=== PATIENT | female | born 1980 | race Caucasian/White ===

== ENCOUNTER 2022-01-29 18:12 | Emergency (ER) | payer MEDICAID ==
[2022-01-30] MEDS ORDERED: Ibuprofen 400 MG Tab PO ONE (07:10)
== END 2022-01-30 07:46 | disposition home or self-care (01) ==
LOC: JP.ED 18:12
DX: F41.0 Panic disorder [episodic paroxysmal anxiety] (principal); F39 Unspecified mood [affective] disorder; G47.9 Sleep disorder, unspecified; F43.12 Post-traumatic stress disorder, chronic; E03.9 Hypothyroidism, unspecified; Z88.5 Allergy status to narcotic agent; Z79.899 Other long term (current) drug therapy
CPT/HCPCS: 36415; 80048; 80143; 80179; 80305; 80307; 85025; 99283; 99285; A9270

== ENCOUNTER 2022-02-11 11:37 | Emergency (ER) | payer MEDICAID ==
[2022-02-11] MEDS ORDERED: Ibuprofen 400 MG Tab PO PRN (20:59)
== END 2022-02-12 07:03 | disposition home or self-care (01) ==
LOC: JP.ED 11:37
DX: F41.9 Anxiety disorder, unspecified (principal); R45.851 Suicidal ideations; F43.10 Post-traumatic stress disorder, unspecified; Z79.899 Other long term (current) drug therapy
CPT/HCPCS: 36415; 80048; 80305; 84443; 85027; 87635; 99284; A9270; U0002